=== PATIENT | female | born 1950 | race Caucasian/White ===

== ENCOUNTER 2018-07-06 08:14 | Outpatient (CLI) | payer MEDICARE ==
--- NOTE | 2018-07-06 11:06 | MRI ---
MRI WITH AND WITHOUT CONTRAST LUMBAR SPINE: INDICATION: Lumbar disk degeneration, low back pain. FINDINGS: There is susceptibility spanning the L4 through S1 segments compatible with posterior metallic fusion . There is also a partial osseous fusion spanning portions of the L4-5 and L5-S1 disk spaces. Verte bral body heights are maintained. No acute marrow edema or significant subluxation. Conus medullari s terminates at the T12-L1 level. There is no pathologic, mass producing enhancement of the vertebra l canal identified. L5-S1: There is prominent left asymmetric osteophyte with a superimposed disk protrusion, constellat ion of findings spanning the left paracentral through medial left foraminal zone. This does efface t he ventral aspect of the traversing left S1 nerve root. No significant foraminal stenosis or high-gr sue compromise of the terminal thecal sac. A component of superimposed epidural fibrosis is also sug gested at the left paracentral through subarticular zone, anteriorly. L4-5: Broad-based osteophyte with mild effacement of the ventral thecal sac. Neural foramina are pa rtially effaced by traversing hardware. L3-4: There is moderate central canal stenosis due to broad-based disk-osteophyte and prominent bila teral degenerative facet hypertrophy. Mild narrowing of each neural foramen present. L2-3: Mild broad-based disk bulge with mild ventral thecal sac effacement. No high-grade foraminal stenosis. L1-2: No significant compromise of the central canal or neural foramina. Incident nose of cyst formation of the left kidney. IMPRESSION: 1. Postoperative lumbar spine. There is degenerative disk disease at L5-S1, likely combined with ep idural fibrosis which does result in effacement of the traversing left S1 nerve root. 2. Moderate central canal stenosis at L3-4. POS: JULIO
[2018-07-06] MEDS ORDERED: Gadobenate Dimeglumine 529 MG/1 ML (20ML VIAL) ONE (13:31)
== END 2018-07-06 08:15 | disposition home or self-care (01) ==
LOC: BICMRI 08:14
PROVIDERS: ATTEND Neurological Surgery
DX: M51.36 Other intervertebral disc degeneration, lumbar region (principal); M51.37 Other intervertebral disc degeneration, lumbosacral region; M48.061 Spinal stenosis, lumbar region without neurogenic claudication; Z98.890 Other specified postprocedural states
CPT/HCPCS: 72158; 82565; A9579

== ENCOUNTER 2018-12-07 07:53 | Outpatient (CLI) | payer MEDICARE ==
--- NOTE | 2018-12-07 10:48 | MMO ---
Bilateral MAMMO Bilat Screen [facility]. CLINICAL HISTORY: Patient is 68 years old and is seen for screening. The patient has no family history of breast cancer. The patient has no personal history of cancer. VIEWS: The views performed were: bilateral craniocaudal with tomosynthesis and bilateral mediolateral oblique with tomosynthesis. FILMS COMPARED: The present examination has been compared to prior imaging studies performed at [facility] on 12/04/2014, 12/17/2014, 07/02/2015, 07/21/2016 and 08/31/2017, and at [facility] on 02/21/2005, 01/23/2008 and 11/26/2009. MAMMOGRAM FINDINGS: There are scattered fibroglandular densities. Benign calcifications are noted bilaterally. Nodularity is stable. No suspicious calcifications or masses are seen. IMPRESSION: FINDINGS IN BOTH BREASTS ARE BENIGN. A ROUTINE FOLLOW-UP MAMMOGRAM IN 1 YEAR IS RECOMMENDED. THE RESULTS OF THIS EXAM WERE SENT TO THE PATIENT. ACR BI-RADS Category 2 - Benign finding MAMMOGRAPHY NOTE: 1. A negative mammogram report should not delay a biopsy if a dominant of clinically suspicious mass is present. 2. Approximately 10% to 15% of breast cancers are not detected by mammography. 3. Adenosis and dense breasts may obscure an underlying neoplasm.
== END 2018-12-07 07:54 | disposition home or self-care (01) ==
LOC: BICMAMMO 07:53
PROVIDERS: ATTEND Family Medicine
DX: Z12.31 Encounter for screening mammogram for malignant neoplasm of breast (principal)
CPT/HCPCS: 77063; 77067